=== PATIENT | female | born 1965 | race Hispanic/Latino ===

== ENCOUNTER 2019-04-10 08:16 | Outpatient (CLI) | payer BC ==
--- NOTE | 2019-04-10 09:00 | BD ---
DEXA BONE DENSITY STUDY: Date: 04/10/19 HISTORY: Postmenopausal. FINDINGS: Lumbar Spine: BMD (g/cm2) L1 0.848 T-Score: -1.3 L2 0.991 T-Score: -0.3 L3 0.962 T-Score: -1.1 L4 0.908 T-Score: -1.4 Total 0.929 T-Score: -1.1 Left Femoral Neck: 0.841 T-Score: -0.1 Total Femur: 1.106 T-Score: +1.3 IMPRESSION: Normal bone mineral density of the left femoral neck and osteopenia of the lumbar spine. 10 year frac ture risk for major osteoporotic fracture is 2.5% and hip fracture less than 0.1%. POS: [facility]
== END 2019-04-10 08:17 | disposition home or self-care (01) ==
LOC: BICMAMMO 08:16
PROVIDERS: ATTEND Advanced Practice Midwife
DX: Z13.820 Encounter for screening for osteoporosis (principal); M85.88 Other specified disorders of bone density and structure, other site
CPT/HCPCS: 77080

== ENCOUNTER 2022-09-28 08:27 | Emergency (ER) | payer OTHER, BC | END 2022-09-28 09:15 | disposition home or self-care (01) | LOC: ERS 08:27 | DX: M54.50 Low back pain, unspecified (principal); V89.2XXA Person injured in unspecified motor-vehicle accident, traffic, initial encounter | CPT/HCPCS: 99283 ==